=== PATIENT | female | born 1990 | race Caucasian/White ===

== ENCOUNTER 2020-04-03 15:08 | Emergency (ER) | payer OTHER ==
[~2020-04-03] VITALS: Ht 177.8 cm; Wt 81.8 kg
[2020-04-03 15:18] VITALS: BP 174/95
== END 2020-04-03 15:30 | disposition home or self-care (01) ==
LOC: ER 15:09
DX: U07.1 COVID-19 (principal)
CPT/HCPCS: 36415; 87635; 99283